=== PATIENT | male | born 1965 | race Caucasian/White ===

== ENCOUNTER 2021-10-19 11:45 | Emergency (ER) | payer BC ==
[~2021-10-19] VITALS: Ht 162.6 cm; Wt 83.9 kg
[2021-10-19 12:29] VITALS: BP 179/89
[2021-10-19] MEDS ORDERED: ACET-8386 PO (13:57)
[2021-10-19] MEDS: KETOROLAC 30 MG/ML VIAL IM ONE (14:16)
[2021-10-19 14:32] VITALS: BP 179/89
== END 2021-10-19 14:33 | disposition home or self-care (01) ==
LOC: MED 11:45
DX: M25.561 Pain in right knee (principal); Z79.899 Other long term (current) drug therapy
CPT/HCPCS: 29505; 73562; 99283; J1885; Q0092